=== PATIENT | female | born 2000 | race African-American/Black ===

== ENCOUNTER 2024-12-30 18:42 | Emergency (ER) | payer OTHER ==
[2024-12-30 19:19] LABS: #Basophils Less than 0.03 10x3/uL (0.0-0.2); #Eosinophils 0.10 10x3/uL (0.0-0.5); #Monocytes 0.69 10x3/uL (0.0-1.1); #Neutrophils 8.44 10x3/uL (1.5-8.4); %Basophils 0.2 % (0.0-2.0); %Eosinophils 0.9 % (0.0-6.0); %Lymphocytes 18.4 % (18.0-47.0); %Monocytes 6.0 % (0.0-10.0); %Neutrophils 73.9 % (40.0-75.0); Hematocrit 36.2 % (34.9-44.5); Hemoglobin 12.0 g/dL (12.0-15.5); Mean Corpuscular Hemoglobin 25.6 pg (27.0-33.0); Mean Corpuscular Volume 77.2 fL (81.6-98.3); Platelet Count 344 10x3/uL (150-450); Red Blood Cell (RBC) Count 4.69 10x6/uL (3.90-5.03); White Blood Cell (WBC) Count 11.42 10x3/uL (3.5-10.5)
[2024-12-30 19:35] LABS: ALT (SGPT) 10 U/L (Less than 34); AST (SGOT) 14 U/L (11-34); Albumin 3.0 g/dL (3.1-4.5); Alkaline Phosphatase 70 U/L (40-110); Anion Gap 13 mmol/L (10-20); BUN (Urea Nitrogen) 5 mg/dL (7.0-18.7); Bilirubin, Total 0.1 mg/dL (0.3-1.2); Calc. Creatinine Clearance 0 mL/min (70-130); Calcium 8.8 mg/dL (7.8-10.44); Carbon Dioxide 19 mmol/L (22-29); Chloride 107 mmol/L (98-107); Globulin 3.6 g/dL (2.4-3.5); Glucose 84 mg/dL (70-105); Potassium 4.0 mmol/L (3.5-5.1); Sodium 135 mmol/L (136-145)
[2024-12-30 19:39] LABS: Troponin I Less than 0.010 ng/mL (< 0.028)
[2024-12-30] MEDS ORDERED: Acetaminophen 500 MG TAB ONE (19:44)
== END 2024-12-30 20:49 ==
LOC: CSHERS 18:42
DX: O99.412 Diseases of the circulatory system complicating pregnancy, second trimester (principal); R07.9 Chest pain, unspecified; Z3A.24 24 weeks gestation of pregnancy; Z55.6 Problems related to health literacy; O99.891 Other specified diseases and conditions complicating pregnancy; R07.2 Precordial pain; O13.2 Gestational [pregnancy-induced] hypertension without significant proteinuria, second trimester
CPT/HCPCS: 36415; 71045; 80053; 81001; 83880; 84484; 85025; 85379; 87086; 93005

== ENCOUNTER 2025-01-15 13:30 | Day surgery (SDC) | payer OTHER ==
[2025-01-15 13:50] VITALS: BMI 44.8
[2025-01-15] MEDS ORDERED: hydrALAZINE 20 MG/ML VIAL SLOW IVP PRN (14:42)
== END 2025-01-15 16:27 | disposition home or self-care (01) ==
LOC: CSHLD/OP 13:30
PROVIDERS: ATTEND Obstetrics & Gynecology
DX: O36.8130 Decreased fetal movements, third trimester, not applicable or unspecified (principal); Z3A.27 27 weeks gestation of pregnancy
CPT/HCPCS: 76819

== ENCOUNTER 2025-01-29 10:42 | Day surgery (SDC) | payer OTHER ==
[2025-01-29 11:08] VITALS: BMI 46.5
== END 2025-01-29 13:19 | disposition home or self-care (01) ==
LOC: CSHLD/OP 10:42
PROVIDERS: ATTEND Obstetrics & Gynecology
DX: O36.8130 Decreased fetal movements, third trimester, not applicable or unspecified (principal); O99.343 Other mental disorders complicating pregnancy, third trimester; F32.A Depression, unspecified; Z3A.29 29 weeks gestation of pregnancy; Z79.899 Other long term (current) drug therapy
CPT/HCPCS: 76819; 99283